=== PATIENT | female | born 1960 | race Caucasian/White ===

== ENCOUNTER → 2017-01-06 | Outpatient (CLI) | payer OTHER ==
[~2017-01-06] MED LIST: ALBUAER3 INH; FISH100020 PO; MAGN250T11 PO; MULT-65 PO; VITA100064 PO
[2017-01-06 09:53] LABS: HEMATOCRIT 40.3 % (35.0-46.0); MEAN CELL VOLUME 82.8 FL (80.0-100.0); MEAN CORPUSCULAR HEMOGLOBIN 27.9 PG (27.0-34.0); MEAN CORPUSCULAR HGB CONC 33.7 % (32.0-36.0); PLATELET COUNT 191 TH/MM3 (150-450); RED BLOOD COUNT 4.87 MIL/MM3 (4.00-5.30); RED CELL DISTRIBUTION WIDTH 14.2 % (11.6-17.2); REVIEW FLAG FINAL; WHITE BLOOD COUNT 4.2 TH/MM3 (4.0-11.0)
== END ==
LOC: CPRE 09:04
PROVIDERS: ATTEND Orthopaedic Surgery
DX: Z01.812 Encounter for preprocedural laboratory examination (principal); M75.01 Adhesive capsulitis of right shoulder
CPT/HCPCS: 36415; 85027

== ENCOUNTER → 2017-01-18 | Day surgery (SDC) | payer OTHER ==
[~2017-01-18] VITALS: Ht 157.5 cm; Wt 61.9 kg
[~2017-01-18] MED LIST changes: +CHLORHEXIDINE GLUCONATE 2 % 1 PACK (2 CLOTHS) TOPICAL PRN; +DEXAMETHASONE SOD PHOS 4 MG/ML VIAL ONE; +KETOROLAC TROMETHAMINE 30 MG/ML (IVP) VIAL IVP ONE; +LACTATED RINGER'S 1000 ML IV PRN; +LIDOCAINE 0.5%/EPINEPHrine 1:200,000 SOLN 50 ML VIAL ONE; +LIDOCAINE 1%/EPINEPHrine 1:100,000 SOLN 20 ML VIAL ONE; +LIDOCAINE HCL 1% 50 ML VIAL ONE; +LIDOCAINE HCL 2% 50 ML VIAL ONE; +METOPROLOL TARTRATE 25 MG TAB PO PRN; +MORPHINE SULFATE 4 MG/ML INJ IV PUSH PRN; +ONDANSETRON HCL 4 MG/2 ML VIAL IV PUSH PRN; +POVIDONE IODINE 5% (ANTISEPSIS KIT) 4 APPLICATIONS EACH NARE PRN; +PROPOFOL 200 MG/20 ML AMP IV ONE; +SODIUM CHLORID 0.9% 500 ML IV PRN; +SODIUM CHLORIDE 0.9% FLUSH 5 ML FLUSH IVF PRN; +SODIUM CHLORIDE 0.9% FLUSH 5 ML FLUSH IVF SCH; +oxyCODONE/ACETAMINOPHEN 5 MG/325 MG TAB PO PRN
--- NOTE | 2017-01-18 10:20 | HHI.PR ---
Immediate Post Op Note Procedure Date: Jan 18, 2017 Pre Op Diagnosis: (1) Adhesive capsulitis of right shoulder Post Op Diagnosis: (1) Adhesive capsulitis of right shoulder Surgeon: Shakir Lora MD [employer](s): RANDY Rush Procedure: Closed manipulation right shoulder Findings: Adhesive capsulitis. Complications: 0 Specimen(s) removed: 0 Estimated blood loss: 0 Anesthesia: General Drains: None IVF Patient to: SDS Patient Condition: Good Date/Time of Procedure: SEE SURGICAL CARE RECORD Mera Lora MD (Charles) Jan 18, 2017 10:20
[2017-01-18 10:44] VITALS: BP 129/69; PULSE 64; RESP 18; TEMP 98.4; O2SAT 99
--- NOTE | 2017-01-18 14:49 | MP ---
cc: Mera ELLIOTT M.D. (CHARLES) DATE OF SURGERY: 01/18/2017 PREOPERATIVE DIAGNOSIS Arthrofibrosis, right shoulder. POSTOPERATIVE DIAGNOSIS Arthrofibrosis, right shoulder. OPERATION PERFORMED Closed manipulation, right shoulder. SURGEON Mera Elliott MD ANESTHESIA General by mask. INDICATIONS AND FINDINGS This 56-year-old woman had a right shoulder surgery several months ago and has not been able to fully move the shoulder. She has been going to physical therapy with no major improvement at this time. PROCEDURE The patient was brought to the operating room and general anesthetic was administered. An appropriate time-out procedure was carried out. After the anesthetic was performed the patient's right shoulder was taken through a range of motion initially. Gently and methodically this was increased with stretching, bringing the shoulder into full external rotation and what appeared to be virtually full internal rotation. Abduction and forward flexion were likewise full. There were palpable and semi-audible releases evident when at the extremes. This allowed for better mobility. The motion in the glenohumeral joint appeared to be smooth and appropriate. An icepack was then applied directly to the shoulder. The patient was transferred from the operating room to the recovery room in satisfactory condition having tolerated the procedure well. There was no incision and therefore there are no counts, nor were there any specimens. MD ZACHARY Andino/TLL /1:46 PM /2:43 PM
== END | disposition home or self-care (01) ==
LOC: HSDC 07:51
PROVIDERS: ATTEND Orthopaedic Surgery
DX: M75.01 Adhesive capsulitis of right shoulder (principal); M24.611 Ankylosis, right shoulder
CPT/HCPCS: 01620; 23700; J7120; J1100